=== PATIENT | female | born 1995 | race African-American/Black ===

== ENCOUNTER 2018-08-23 17:42 | Emergency (ER) | payer OTHER, SELFPAY ==
[~2018-08-23] VITALS: Ht 160 cm; Wt 72.7 kg
[2018-08-23 17:43] VITALS: BP 122/66
== END 2018-08-23 18:28 | disposition left against medical advice (07) ==
LOC: M ED 17:42
DX: Z53.29 Procedure and treatment not carried out because of patient's decision for other reasons (principal)

== ENCOUNTER → 2018-09-23 | Outpatient (CLI) | payer OTHER ==
[2018-09-23 17:44] LABS: BASO % 0.1 % (0.0-1.0); EOS # 0.1 10^3/uL (0.0-0.50); EOS % 0.7 % (0.0-3.0); HEMATOCRIT 38.1 % (36.0-47.0); HEMOGLOBIN 12.9 g/dl (12.0-15.5); LYMPH # 1.3 10^3/uL (1.5-6.5); LYMPH % 17.8 % (24.0-44.0); MEAN CORPUSCULAR HEMOGLOBIN 30.7 pg (27.0-33.0); MEAN CORPUSCULAR HGB CONC 33.9 g/dl (32.0-36.5); MEAN CORPUSCULAR VOLUME 90.7 fl (80.0-96.0); MONO # 0.7 10^3/uL (0.0-0.8); MONO % 9.1 % (0.0-5.0); NEUTROPHILS # 5.2 10^3/uL (1.8-7.7); PLATELET COUNT, AUTOMATED 234 10^3/uL (150-450); WHITE BLOOD COUNT 7.2 10^3/uL (4.0-10.0)
[2018-09-23 18:34] LABS: HIV 1&2 SCREEN CENTAUR NEGATIVE (NEGATIVE); RUBELLA IgG QUALITATIVE IMMUNE (IMMUNE)
[2018-09-23 19:41] LABS: CHLAMYDIA DNA AMPLIFICATION NEGATIVE (NEGATIVE); GC DNA AMPLIFICATION NEGATIVE (NEGATIVE)
[2018-09-25 10:49] LABS: HEPATITIS C VIRUS ABY INDEX 0.1 INDEX (<0.8)
== END ==
LOC: M SMT 09:49
PROVIDERS: ATTEND Advanced Practice Midwife
DX: Z36.89 Encounter for other specified antenatal screening (principal); Z3A.12 12 weeks gestation of pregnancy

== ENCOUNTER 2018-10-10 06:28 | Day surgery (SDC) | payer OTHER ==
[~2018-10-10] VITALS: Ht 160 cm; Wt 73.5 kg
[~2018-10-10 06:28] MED LIST: LR 1,000 ML IV ONE; MULTTAB20 PO
[2018-10-10 07:00] LABS: HEMATOCRIT 37.2 % (36.0-47.0); HEMOGLOBIN 12.7 g/dl (12.0-15.5); MEAN CORPUSCULAR HEMOGLOBIN 31.1 pg (27.0-33.0); MEAN CORPUSCULAR HGB CONC 34.1 g/dl (32.0-36.5); PLATELET COUNT, AUTOMATED 199 10^3/uL (150-450); RED BLOOD COUNT 4.09 10^6/uL (4.00-5.40); WHITE BLOOD COUNT 8.1 10^3/uL (4.0-10.0)
[2018-10-10] MEDS ORDERED: LIDOCAINE 2% INJ 100 MG/5 ML SDV (FOR ANES.) As Ordered ONE (07:23)
[2018-10-10] MEDS ORDERED: PROPOFOL 200 MG/20 ML VIAL As Ordered ONE (07:23)
[2018-10-10] MEDS ORDERED: CHLOROPROCAINE 2 % INJ PRES.FREE 20 ML VIAL (J2400) As Ordered ONE (08:09)
[2018-10-10] MEDS ORDERED: HYDROMORPHONE HCL 0.5 MG/ 0.5 ML SYRINGE (J1170 PER 1) IV PRN (09:00)
[2018-10-10] MEDS ORDERED: PERCOCET 5MG/325MG TAB PO PRN (09:00)
[2018-10-10] MEDS ORDERED: ONDANSETRON 4MG/2ML VIAL (J2405) IV PRN (09:00)
[2018-10-10] MEDS ORDERED: LR 1,000 ML IV SCH ×2 (09:00)
[2018-10-10] MEDS ORDERED: fentaNYL 100 MCG/2 ML INJECTION (J3010) IV PRN (09:00)
[2018-10-10 11:45] VITALS: BP 115/56
--- NOTE | 2018-10-11 13:06 | RO ---
DATE OF PROCEDURE: 10/10/2018 PREOPERATIVE DIAGNOSIS: History of cervical insufficiency. Currently 14.6 weeks gestation. POSTOPERATIVE DIAGNOSIS: History of cervical insufficiency. Currently 14.6 weeks gestation. PROCEDURE PERFORMED: Nath cerclage (history indicated). SURGEON: Alejandro Valentine DO HEALTH PLAN SPECIALIST: None. ANESTHESIA TYPE: Spinal SPECIMENS TO PATHOLOGY: None. ESTIMATED BLOOD LOSS: 5 mL. FLUIDS REPLACED: 500 mL lactated Ringer's. DRAINS: In-and-out catheter, 100 mL urine output. COMPLICATIONS: None. INTRAOPERATIVE FINDINGS: Large parous dilated cervix, approximately 2 cm dilated. No protruding membranes. A Nath cerclage was cinched the cervix down to fingertip dilation. INDICATION: The patient is a 23-year-old 2, para 1. She in her last had a rescue cerclage in the second trimester and she subsequently delivered at term at 37 weeks. She was counseled on a history indicated cerclage being indicated and she agreed to proceed with this procedure. PROCEDURE: The patient was counseled and consented on the risks, benefits, indications and alternatives to the procedure. Informed consent was obtained. She was taken to the operating room, placed on the operating table. Spinal anesthesia was administered and the patient was then placed in dorsal supine position. Spinal anesthesia was found to be adequate. She was then placed in the high lithotomy position. She was prepared and draped in the normal sterile fashion. A time out was performed per protocol. The bladder was drained with a sterile in-and-out catheter. A sterile speculum placed with good visualization of the cervix. The ring forceps clamp was used to manipulate the cervix. A Nath cerclage was performed with Ethibond suture. The circumferential stitch was then tied at the 12 o'clock position and the findings are noted above. Minimal bleeding was noted. No loss of fluid was noted. In the postanesthesia care unit (PACU) a limited transabdominal ultrasound revealed a live single intrauterine consistent with gestational age and the heart rate was 150. Excellent amniotic fluid was noted around the baby and the baby was moving. The patient was in the PACU in good and stable condition. She tolerated the entire procedure very well. The sponge, lap, needle and instrument counts were correct.
== END 2018-10-10 11:52 | disposition home or self-care (01) ==
LOC: M SDC 06:28
PROVIDERS: ATTEND Obstetrics & Gynecology
DX: O34.32 Maternal care for cervical incompetence, second trimester (principal); Z3A.14 14 weeks gestation of pregnancy
CPT/HCPCS: 36415; 59320; 85027; 86850; 86900; 86901; J2400

== ENCOUNTER → 2018-11-13 | Outpatient (CLI) | payer OTHER ==
[~2018-11-13] MED LIST changes: -LR 1,000 ML IV ONE
--- NOTE | 2018-11-13 15:09 | REP ---
OB ULTRASOUND: Real-time sonographic evaluation of the gravid uterus performed. There is a single living intrauterine gestation with an estimated gestational age 19 weeks 6 days with EDC 04/03/2019. Today's measurements indicate appropriate growth. Biometry and Growth: BPD 44 mm = 19 weeks 1 day, 31st percentile HC 169 mm = 19 weeks 3 days, 38th percentile AC 138 mm = 19 weeks 2 days, 36th percentile FL 30 mm = 19 weeks 3 days, 37th percentile HC/AC ratio 1.22 within normal range. Estimated weight 285 grams, 27th percentile. SEEN/GROSSLY UNREMARKABLE Lateral ventricles Yes Posterior fossa Yes Upper lip No Four-chamber heart No LVOT No RVOT Yes Stomach Yes Cord insertion Yes Three vessel cord No Kidneys Yes Bladder Yes Spine Yes Cervical length: Closed and measures 3.9 cm in length. heart rate: 147 beats per minute. position: Breech. Placenta: Anterior and fundal and grade 0 with no previa or abruption. Amniotic fluid: Within normal limits. Electronically Signed by Dario Nicholas MD 11/14/2018 10:47 A
== END ==
LOC: M RAD 13:50
PROVIDERS: ATTEND Obstetrics & Gynecology
DX: Z34.82 Encounter for supervision of other normal pregnancy, second trimester (principal)

== ENCOUNTER → 2018-12-16 | Outpatient (CLI) | payer OTHER ==
--- NOTE | 2018-12-17 08:06 | REP ---
Clinical: Anatomical evaluation. Comparison: 11/13/2018 . Findings: Examination demonstrates a single live intrauterine in breech presentation. motion is identified by technologist. Placenta is noted anterior/fundal and grade zero without evidence for placenta previa or abruption. Amniotic fluid volume is normal. Cervix measures 1.6 cm in length and appears closed. Cerclage noted. Nuchal cord cannot be excluded. Gestational age by LMP 24 weeks 4 day with LUIS FELIPE 04/03/2019 . Gestational age by current measurements 24 weeks 2 days with LUIS FELIPE 04/05/2019 . FHR equals 156 beats per minute. Estimated weight 660 grams ( 30th percentile). Anatomical assessment demonstrates normal structures including cranium, choroid plexus, cavum, cerebellum/posterior fossa, facial features, lungs, four-chamber heart/ventricular outflow tracts, diaphragm, stomach, cord insertion/three-vessel cord, kidneys/bladder, and lower extremities. Impression: Single live intrauterine in breech presentation. Nuchal cord cannot be excluded. Cervix measures 1.6 cm in length with cerclage noted. Electronically Signed by Jey Lai MD 12/17/2018 07:58 A
== END ==
LOC: M RAD 14:02
PROVIDERS: ATTEND Obstetrics & Gynecology
DX: Z34.82 Encounter for supervision of other normal pregnancy, second trimester (principal)

== ENCOUNTER → 2019-01-03 | Outpatient (CLI) | payer OTHER ==
[2019-01-03 09:32] LABS: HEMATOCRIT 33.8 % (36.0-47.0); HEMOGLOBIN 10.8 g/dl (12.0-15.5); MEAN CORPUSCULAR HEMOGLOBIN 30.2 pg (27.0-33.0); MEAN CORPUSCULAR VOLUME 94.4 fl (80.0-96.0); PLATELET COUNT, AUTOMATED 221 10^3/uL (150-450); RED BLOOD COUNT 3.58 10^6/uL (4.00-5.40)
== END ==
LOC: M LAB 07:44
PROVIDERS: ATTEND Obstetrics & Gynecology
DX: Z34.82 Encounter for supervision of other normal pregnancy, second trimester (principal)

== ENCOUNTER 2019-01-15 21:23 | Outpatient (CLI) | payer OTHER ==
[~2019-01-15] VITALS: Ht 160 cm; Wt 80.1 kg
[2019-01-15] MEDS ORDERED: [UNRECOGNIZED DRUG - OTHER] (21:38)
[2019-01-15 21:52] VITALS: BP 147/76
[2019-01-15] MEDS ORDERED: LR 1,000 ML IV SCH (21:55)
[2019-01-15] MEDS ORDERED: AMPICILLIN SOD 2 GM in APPROPRIATE DILUENT 20 ML IV STA (21:59)
[2019-01-15] MEDS ORDERED: BETAMETHASONE SOLUSPAN 6MG/ML INJ 5ML (J0702) IM SCH (22:00)
[2019-01-15] MEDS ORDERED: MAG Sulf (L&D) 4 GM/100 ML 4 GM in IV 1 EA IV ONE (22:00)
[2019-01-15] MEDS ORDERED: AZITHROMYCIN 250 MG TAB PO ONE (22:00)
[2019-01-15] MEDS ORDERED: MAG Sulf (OBGYN) 20GM/500ML 20,000 MG in IV 1 EA IV SCH (22:15)
[2019-01-15 22:33] LABS: BASO % 0.2 % (0.0-1.0); EOS # 0.1 10^3/uL (0.0-0.5); EOS % 1.2 % (0.0-3.0); HEMATOCRIT 32.3 % (36.0-47.0); HEMOGLOBIN 10.5 g/dl (12.0-15.5); LYMPH # 1.5 10^3/uL (1.5-5.0); LYMPH % 18.4 % (24.0-44.0); MEAN CORPUSCULAR HEMOGLOBIN 29.7 pg (27.0-33.0); MEAN CORPUSCULAR HGB CONC 32.5 g/dl (32.0-36.5); MEAN CORPUSCULAR VOLUME 91.5 fl (80.0-96.0); MONO # 0.9 10^3/uL (0.0-0.8); MONO % 11.4 % (0.0-5.0); NEUTROPHILS # 5.5 10^3/uL (1.5-8.5); NEUTROPHILS % 68.3 % (36.0-66.0); PLATELET COUNT, AUTOMATED 220 10^3/uL (150-450); RED BLOOD COUNT 3.53 10^6/uL (4.00-5.40); WHITE BLOOD COUNT 8.1 10^3/uL (4.0-10.0)
[2019-01-15 22:40] VITALS: BP 116/60
[2019-01-15 22:52] VITALS: BP 117/63
[2019-01-15 23:08] VITALS: BP 141/80
[2019-01-15 23:17] VITALS: BP 113/56
[2019-01-15 23:46] LABS: ALT/SGPT 25 U/L (12-78); BILIRUBIN,TOTAL 0.3 MG/DL (0.2-1.0); CREATININE FOR GFR 0.54 MG/DL (0.55-1.30); GLOMERULAR FILTRATION RATE > 60.0 (>60); LDH LACTATE DEHYDROGENASE 234 U/L (84-246); URIC ACID 2.9 MG/DL (2.6-6.0)
[2019-01-16 00:10] LABS: CREATININE,RANDOM URINE 31.5 MG/DL; TOTAL PROTEIN,RANDOM URINE 61.7 MG/DL (0.0-12.0)
--- NOTE | 2019-01-16 05:18 | HPE ---
DATE OF ADMISSION: 01/15/2019 This is a 23-year-old 2, para 1-0-0-1 at 28-5/7 weeks gestation with an estimated date of confinement (EDC) of 04/04/2019 based on last menstrual period confirmed by first trimester ultrasound. She presents to labor and delivery today with report of spontaneous rupture of membranes at approximately 2044. She reports that the fluid is clear and copious. She denies vaginal bleeding and contractions. She does report that the fetus has been active. Her care was initiated a woman's perspective in the first trimester at 12 weeks gestation. course complicated by a history of cervical incompetence with a cerclage in her prior placed in the second trimester. She did undergo Nath cerclage on 10/10/2018 for this . OBSTETRICAL HISTORY: May 2017: 37 week spontaneous vaginal delivery for 6 pounds, 3 ounces female following removal of cerclage. OBSTETRIC LABS: B+, antibody screen negative, rubella immune, VDRL nonreactive. Urine culture no growth. Hep B surface antigen negative, HIV negative. Hep C antibody nonreactive. Gonorrhea and chlamydia negative. She did not undergo genetic serum screening labs. Gestational diabetic screening 108. Her GBS is unknown at this time. PAST MEDICAL HISTORY: 1. Incompetent cervix during . 2. Childhood varicella. PAST SURGICAL HISTORY: Cerclage placement times two. FAMILY HISTORY: Diabetes, hypertension. SOCIAL HISTORY: The patient is . Her partner is at bedside and supportive. She is a nonsmoker. She denies alcohol and drug use. She has no history of sexually transmitted infections and she denies history of abuse physical, sexual and emotional allergies. ALLERGIES: No known drug allergies. CURRENT MEDICATIONS: - vitamin OBJECTIVE: Vital signs: Temperature 99.8, pulse 113, respirations 18. Her blood pressure is 147/76 upon arrival. heart rate is 145 with moderate variability, appropriate for gestational age. There is no pattern of regular contractions. Sterile speculum exam: She is grossly ruptured. Positive Nitrazine, positive fern, positive pooling. Sterile vaginal exam: 1 cm dilated, 80% effaced, minus two station, cerclage still in place, no bleeding. Bedside ultrasound demonstrates cephalic presentation. ASSESSMENT: Intrauterine at 28-5/7 weeks. premature rupture of membranes. heart rate appropriate for gestational age. PLAN: Per consult with Dr. Alejandro Valentine: CBC and syphilis, pre-eclamptic profile and a spot urine due to the elevated blood pressure, magnesium sulfate for neural protection, betamethasone for lung maturity, antibiotics to prolonged latency and GBS culture and sensitivity. Consult will be made for the center for maternal transfer due to prematurity.
== END 2019-01-15 23:47 | disposition other institution (70) ==
LOC: M LDO 21:23
PROVIDERS: ATTEND Advanced Practice Midwife
DX: O34.33 Maternal care for cervical incompetence, third trimester (principal); Z3A.28 28 weeks gestation of pregnancy
CPT/HCPCS: 82247; 82565; 82570; 83615; 84156; 84450; 84460; 84550; 85025; 86780; 87081; 87186; 96365; 96368; 96372; G0378; G0463; J0702; J3475

== ENCOUNTER → 2019-05-07 | Outpatient (CLI) | payer OTHER ==
[~2019-05-07] MED LIST changes: +[UNRECOGNIZED DRUG - OTHER]
[2019-05-07 11:18] LABS: BASO % 0.8 % (0.0-1.0); EOS # 0.3 10^3/uL (0.0-0.5); EOS % 5.7 % (0.0-3.0); HEMATOCRIT 44.1 % (36.0-47.0); HEMOGLOBIN 14.5 g/dl (12.0-15.5); LYMPH # 1.5 10^3/uL (1.5-5.0); LYMPH % 30.8 % (24.0-44.0); MEAN CORPUSCULAR HEMOGLOBIN 29.5 pg (27.0-33.0); MEAN CORPUSCULAR HGB CONC 32.9 g/dl (32.0-36.5); MEAN CORPUSCULAR VOLUME 89.8 fl (80.0-96.0); MONO # 0.5 10^3/uL (0.0-0.8); MONO % 9.9 % (0.0-5.0); NEUTROPHILS # 2.5 10^3/uL (1.5-8.5); NEUTROPHILS % 52.4 % (36.0-66.0); PLATELET COUNT, AUTOMATED 231 10^3/uL (150-450); RED BLOOD COUNT 4.91 10^6/uL (4.00-5.40); WHITE BLOOD COUNT 4.8 10^3/uL (4.0-10.0)
[2019-05-07 12:01] LABS: ALBUMIN 3.7 GM/DL (3.2-5.2); ALT/SGPT 36 U/L (12-78); BILIRUBIN,TOTAL 0.3 MG/DL (0.2-1.0); BLOOD UREA NITROGEN 11 MG/DL (7-18); CALCIUM LEVEL 8.5 MG/DL (8.5-10.1); CARBON DIOXIDE LEVEL 26 MEQ/L (21-32); CHLORIDE LEVEL 108 MEQ/L (98-107); CHOLESTEROL LEVEL 138 MG/DL (<200); CHOLESTEROL RISK RATIO 3.209 (<5); CREATININE FOR GFR 0.69 MG/DL (0.55-1.30); FREE T4 0.93 NG/DL (0.76-1.46); GLOMERULAR FILTRATION RATE > 60.0 (>60); GLUCOSE, FASTING 94 MG/DL (70-100); HDL CHOLESTEROL 43 MG/DL (>40); LDL CHOLESTEROL 88 MG/DL (<100); NON-HDL-C 95 MG/DL; POTASSIUM SERUM 4.3 MEQ/L (3.5-5.1); SODIUM LEVEL 140 MEQ/L (136-145); TOTAL PROTEIN 7.2 GM/DL (6.4-8.2); TRIGLYCERIDES LEVEL 35 MG/DL (<150)
[2019-05-07 13:16] LABS: HEMOGLOBIN A1c 5.5 %
== END ==
LOC: M LAB 10:30
PROVIDERS: ATTEND Physician Assistant
DX: Z13.220 Encounter for screening for lipoid disorders (principal); Z13.29 Encounter for screening for other suspected endocrine disorder

== ENCOUNTER → 2020-01-12 | Outpatient (CLI) | payer OTHER ==
[2020-01-12 17:35] LABS: BASO % 0.5 % (0.0-1.0); EOS # 0.1 10^3/uL (0.0-0.5); EOS % 1.1 % (0.0-3.0); HEMATOCRIT 42.5 % (36.0-47.0); HEMOGLOBIN 13.9 g/dl (12.0-15.5); LYMPH # 1.8 10^3/uL (1.5-5.0); LYMPH % 22.6 % (24.0-44.0); MEAN CORPUSCULAR HEMOGLOBIN 29.8 pg (27.0-33.0); MEAN CORPUSCULAR HGB CONC 32.7 g/dl (32.0-36.5); MONO # 0.5 10^3/uL (0.0-0.8); MONO % 6.3 % (0.0-5.0); NEUTROPHILS # 5.5 10^3/uL (1.5-8.5); NEUTROPHILS % 69.2 % (36.0-66.0); PLATELET COUNT, AUTOMATED 270 10^3/uL (150-450); RED BLOOD COUNT 4.67 10^6/uL (4.00-5.40); WHITE BLOOD COUNT 7.9 10^3/uL (4.0-10.0)
[2020-01-12 18:22] LABS: ALT/SGPT 21 U/L (12-78); BILIRUBIN,TOTAL 0.3 MG/DL (0.2-1.0); BLOOD UREA NITROGEN 5 MG/DL (7-18); CALCIUM LEVEL 8.8 MG/DL (8.5-10.1); CARBON DIOXIDE LEVEL 26 MEQ/L (21-32); CHLORIDE LEVEL 109 MEQ/L (98-107); GLOMERULAR FILTRATION RATE > 60.0 (>60); GLUCOSE, FASTING 90 MG/DL (70-100); POTASSIUM SERUM 3.6 MEQ/L (3.5-5.1); SODIUM LEVEL 142 MEQ/L (136-145)
[2020-01-12 18:23] LABS: ALBUMIN 3.5 GM/DL (3.2-5.2); FREE T4 0.88 NG/DL (0.76-1.46); THYROID STIMULATING HORMONE 0.942 uIU/ML (0.358-3.740); TOTAL PROTEIN 7.1 GM/DL (6.4-8.2)
== END ==
LOC: M LAB 15:54
PROVIDERS: ATTEND Physician Assistant
DX: R07.9 Chest pain, unspecified (principal)

== ENCOUNTER → 2020-06-01 | Outpatient (REF) | payer OTHER ==
[2020-06-01 20:39] LABS: CHLAMYDIA DNA AMPLIFICATION NEGATIVE (NEGATIVE); GC DNA AMPLIFICATION NEGATIVE (NEGATIVE)
== END ==
LOC: M SFHCWAGY 17:08
PROVIDERS: ATTEND Obstetrics & Gynecology
DX: Z12.4 Encounter for screening for malignant neoplasm of cervix (principal)